=== PATIENT | female | born 1975 | race Caucasian/White ===

== ENCOUNTER 2023-08-23 15:54 | Outpatient (RCR) | payer OTHER, SELFPAY | END 2023-08-23 23:59 | disposition home or self-care (01) | LOC: RST 15:54 | PROVIDERS: ATTENDING PHYSICIAN Otolaryngology; FAMILY PHYSICIAN Family Medicine | DX: R49.0 Dysphonia (principal); K21.9 Gastro-esophageal reflux disease without esophagitis; R05.3 Chronic cough | CPT/HCPCS: 92507 ==

== ENCOUNTER → 2023-12-13 13:24 | Outpatient (REF) | payer OTHER, SELFPAY | LOC: HWWDC 13:24 | PROVIDERS: ATTENDING PHYSICIAN Family Medicine | DX: Z12.31 Encounter for screening mammogram for malignant neoplasm of breast (principal) | CPT/HCPCS: 77063; 77067 ==

== ENCOUNTER 2023-12-21 12:23 | Emergency (ER) | payer OTHER, SELFPAY ==
[2023-12-21 12:29] VITALS: BP 103/75
--- NOTE | 2023-12-21 13:34 | ED.GENMED ---
History of Present Illness
<Cary Fraser PA-C - Last Filed: 12/22/23 17:52>
General
Chief Complaint: Fall
Source: patient
Exam Limitations: none
Time Seen by Provider: 12/21/23 13:12
Nursing documentation reviewed up to this point in time: agreed with
Travel History
Have you had any contact with someone who has COVID-19?: No
Do you have any symptoms of coronavirus? Fever > 100 degrees, chills, cough, shortness of breath, sore throat, loss of taste or smell, muscle aches, or headache?: No
History of Present Illness
History of Present Illness:
Patient is a 48-year-old female with no significant past medical history presenting for evaluation of head injury following what appears to be a vasovagal syncope event earlier this morning. Patient states that she got up around 2 AM to use the
bathroom while she was sitting on the toilet having a bowel movement she fainted falling forward striking the right side of her face and head on the tile floor. Her son heard her and came into a bathroom to assist her. She temporarily regained
consciousness and then fainted briefly again. When she regained consciousness the second time�patient was able to stand up and get back to her bed. Since waking this morning patient denies any repeat syncopal events.
She does have a mild headache and pain on the left side of her face. She also endorses some mild pain in her left shoulder. She denies any severe neck pain, visual changes, nausea/vomiting. She denies any preceding chest pain, shortness of breath
dizziness, lightheadedness, new weakness, numbness, severe back preceding loss of consciousness. Patient denies any recent fever or chills. Patient does not take a blood thinner.
Patient states she has had a few episodes of syncope over the past 4 months for which she has seen her primary care provider.
Past History
<Cary Fraser PA-C - Last Filed: 12/22/23 17:52>
Past History
ED Past Medical History: Psychiatric and Other (Fibromyalgia)
ED Past Surgical History: Negative Cardiac
Social History
Tobacco: Non-smoker
Alcohol: Occasional
Drug: None
Personal:
Living: with family
Family History
Family History: Hypertension
Review of Systems
<Cary Fraser PA-C - Last Filed: 12/22/23 17:52>
Review of Systems
Allergies reviewed?: Yes
All Other Systems: ROS reviewed and negative except as documented in HPI and ROS
Phy Exam
<Cary Fraser PA-C - Last Filed: 12/22/23 17:52>
Physical Exam
Physical Exam:
Vitals: Patient's vital signs are stable. Afebrile
General: Patient is well appearing, no acute distress
Skin: Warm and dry, no rashes or lesions
Head: Normocephalic, small hematoma noted to left lateral brow.
Eyes: Sclera nonicteric. EOMs intact bilaterally. No nystagmus. Pupils equal round reactive light bilaterally.
Throat: Protecting airway
Neck: Normal ROM, no cervical spine tenderness, no meningismus. Trachea midline
Cardiac: Regular rate and rhythm, no murmurs.
Pulm: Normal respiratory effort, no wheezes, rales, rhonchi heard on exam.
Abdomen: No abdominal tenderness.
Extremities: Mild tenderness to left shoulder with no obvious edema or bony deformity. No tenderness of left clavicle. Full ROM in left shoulder intact with minimal discomfort. No evidence of cyanosis or edema. Good distal pulses in bilateral upper
and lower extremities. Normal sensation.
Neuro: AAOx3. CN II-XII intact. No focal neurologic deficits. Strength 5-5 in upper and lower extremities. Sensation fully intact. Normal finger-nose
Psychiatric: Normal affect.
Course
<Cary Fraser PA-C - Last Filed: 12/22/23 17:52>
Orders/Labs/Results
Orders:
Orders
12/21/23 12:32
Electrocardiogram (*1) Urgent
Reason for Study: Other
Other Reason for Exam: fall
CT Head W/o Iv Contrast Urgent
Comment:
Reason For Exam: fall
12/21/23 12:33
EKG- Treatment ONCE
12/21/23 13:45
Acetaminophen [Tylenol] 650 mg PO NOW STA
Shoulder, Left 2 View CR [CR Shoulder - Left Min 2 View*] Urgent
Comment:
Reason For Exam: fall, shoulder pain
12/21/23 13:54
Complete Blood Count/With Diff Urgent
Comprehensive Metabolic Panel Urgent
12/21/23 14:40
Orthostatic VS- Treatment ONCE
Abnormal Lab Results
12/21/23
13:54
Glucose 106 H mg/dl
(70-99)
12/21/23 13:54
12/21/23 13:54
Vital Signs
Initial and Last Documented VS:
Initial Vital Signs
Temp Pulse Resp BP Pulse Ox
98.0 F 81 19 103/75 98
12/21/23 12:29 12/21/23 12:29 12/21/23 12:29 12/21/23 12:29 12/21/23 12:29
Last Documented Vital Signs
Temp Pulse Resp BP Pulse Ox
98.0 F 81 19 103/75 98
12/21/23 12:29 12/21/23 12:29 12/21/23 12:29 12/21/23 12:29 12/21/23 12:29
<David Simmons MD - Last Filed: 12/21/23 16:28>
Orders/Labs/Results
Orders:
Orders
12/21/23 12:32
Electrocardiogram (*1) Urgent
Reason for Study: Other
Other Reason for Exam: fall
CT Head W/o Iv Contrast Urgent
Comment:
Reason For Exam: fall
12/21/23 12:33
EKG- Treatment ONCE
12/21/23 13:45
Acetaminophen [Tylenol] 650 mg PO NOW STA
Shoulder, Left 2 View CR [CR Shoulder - Left Min 2 View*] Urgent
Comment:
Reason For Exam: fall, shoulder pain
12/21/23 13:54
Complete Blood Count/With Diff Urgent
Comprehensive Metabolic Panel Urgent
12/21/23 14:40
Orthostatic VS- Treatment ONCE
Abnormal Lab Results
12/21/23
13:54
Glucose 106 H mg/dl
(70-99)
12/21/23 13:54
12/21/23 13:54
Vital Signs
Initial and Last Documented VS:
Initial Vital Signs
Temp Pulse Resp BP Pulse Ox
98.0 F 81 19 103/75 98
12/21/23 12:29 12/21/23 12:29 12/21/23 12:29 12/21/23 12:29 12/21/23 12:29
Last Documented Vital Signs
Temp Pulse Resp BP Pulse Ox
98.0 F 81 19 103/75 98
12/21/23 12:29 12/21/23 12:29 12/21/23 12:29 12/21/23 12:29 12/21/23 12:29
<Cary Fraser PA-C - Last Filed: 12/22/23 17:52>
MDM/Problems Addressed
Differential Diagnosis Includes:
Not limited to: Contusion, concussion, doubt fracture; vasovagal syncope, cardiac dysrhythmia, dehydration, electrolyte derangements, viral illness, orthostatic hypotension, highly doubt pulmonary emboli
MDM/Problems Addressed:
48-year-old female presenting for evaluation of head injury sustained this morning after what seems to be a vasovagal syncopal event. Patient had right frontal head strike on hard tile without any loss of conscious. She presents with a contusion
to her left lateral eyebrow and mild headache. She has some mild pain in her left shoulder from as well. Patient denies any preceding chest pain, shortness of breath, dizziness, lightheadedness prior to syncopal event. She has had a few syncopal
events over the past few months which she has mentioned to her primary care provider. Vital signs are stable. Exam as above. No focal neurologic deficits. Contusion noted to left lateral brow. Suspect likely facial contusion. Will check head
CT, shoulder x-ray. Given recurrent syncopal episodes�will obtain basic labs, check EKG, orthostatics. Will closely monitor and reassess. Tylenol and ice.
Shoulder x-ray shows no acute fracture or dislocation. Head CT shows some swelling in the left periorbital region consistent with contusion but no evidence of fracture or intracranial hemorrhage. Labs normal. EKG shows normal sinus rhythm without
any signs of ischemia. Orthostatic vital signs normal without any evidence of orthostatic hypotension.
Stable for discharge with ice, NSAIDs for discomfort. Will provide cardiology referral given recurrent syncopal episodes with negative workup here. Return precautions discussed. Patient comfortable with plan.
Chronic conditions affecting care:
N/A
Acute Exacerbation and/or Progression of Chronic Illness:
N/A
<Cary Fraser PA-C - Last Filed: 12/22/23 17:52>
*Radiology
Radiology exam reviewed: preliminary read by ED provider and radiology read reviewed
*Pulse Oximetry
Patient hypoxic: no
*EKG
Interpreted by ED Provider?: Yes
EKG Intrepretation Date: 12/21/23
Interpretation: normal
Comparison EKG: no changes
Heart Rate: 69
Rate: normal
Rhythm: sinus
Interval: normal interval
Ischemia: no ischemia
*Telephone Information Supervisor Interpretation
Rate: Telephone Information Supervisor- N/A
*Critical Care Note
Total Time (30-74mins, 75-104mins- exclusive of procedures): Not Applicable
ED Attending Note
<Cary Fraser PA-C - Last Filed: 12/22/23 17:52>
-
Portions of this chart may have been created with voice recognition software.� Occasional wrong word or��sound alike� substitutions may have occurred due to the inherent limitations of voice recognition software.
<David Simmons MD - Last Filed: 12/21/23 16:28>
ED Attending Note
Patient seen and examined by attending physician: Yes
ED Attending Note:
I have seen and evaluated the patient with a [id number] encounter. I have spoken to the advance practicer provider and involved in the medical history, the physical exam, medical decision making.
Evaluation and management service: agree unless noted differently below.
Results interpretation: agree unless noted differently below.
Focused HPI: 48-year-old female with no significant chronic medical issues presents for evaluation after a syncopal event also had a head trauma. Patient reports that she woke up in the middle of the night to go to the bathroom. She says that she
was having a bowel movement and while she was on the toilet she felt dizzy and passed out. She says that she hit her head on the tile floor. No other serious injuries but she had some swelling above her left eye and so she came to the emergency
room to be assessed. She has not had any chest pain, shortness of breath, palpitations. She denies any known cardiac history. Regarding the fall she complains of some mild headache but denies any neck pain, back pain, chest pain, abdominal pain;
she does have some mild left shoulder pain. She is not on blood thinners.
Physical exam: Awake and alert not in distress. Vital signs are normal. She has a mild contusion in the left supraorbital region. Pupils are equal round and reactive to light bilaterally and extraocular movements are intact without pain. She has
no tenderness in the cervical spine and full range of motion in the neck with no discomfort. She has some very mild tenderness along the anterior lateral left shoulder and pain with active range of motion but she does have full active range of
motion. Rest of extremities are atraumatic and she is moving them all through comfortable range of motion. She has good pulses in all extremities. She has no signs of trauma to the back. No gross neurologic deficits. She has no cardiac rubs
gallops or murmurs and her lungs are clear to auscultation bilaterally.
Medical Decision Makin-year-old female presents for evaluation after a syncopal episode while having a bowel movement last night, struck the left side of her head. Vitals and exam as documented. EKG showed no concerning findings. CBC and CMP
unremarkable. Her CT head was negative for any acute intracranial pathology. X-ray of the shoulder showed possible tendinitis otherwise unremarkable. Suspect likely vasovagal syncope in the setting of having a bowel movement. She has had
syncopal events in the past; refer to cardiology for follow-up�prior episodes have happened on the toilet as well. Advised rest and ice for left shoulder contusion. She feels very comfortable with this plan. Spoke about return precautions all
questions answered.
Discharge Plan
Departure
Patient Disposition: Home (Routine Discharge)
Date of Disposition: 12/21/23
Time of Disposition: 15:23
Patient with high blood pressure during this ER visit?: No
Condition: Good
Covid-19: Not Applicable
Discharge Problem:
Minor head injury, Contusion of face, Syncope, vasovagal
Instructions: Concussion, Adult (DC), Contusion (DC), Vasovagal Response (DC)
Prescriptions:
No Action
levothyroxine 100 MCG tablet
100 mcg PO DAILY
tramadol 50 MG tablet
100 mg PO BID
pregabalin [Lyrica] 100 MG capsule
100 mg PO BID
cholecalciferol (vitamin D3) 2,000 UNIT tablet
2,000 unit PO BID
Flexeril:
1 tab PO BID
Klonopin
1 tab PO PRN PRN (Reason: prn)
Meloxicam
1 tab PO DAILY
amoxicillin-pot clavulanate 875-125 mg tablet
1 tab PO BID Qty: 10 0RF
prednisone 10 mg Tablet
See Rx Instructions .ROUTE .COMPLEX Qty: 45 0RF
Rx Instructions:
Take By Mouth:
50 mg daily x3 days, 40 mg daily x3 days,
30 mg daily x3 days, 20 mg daily x3 days,
10 mg daily x3 days
Referrals:
Jeremy Naranjo MD [Active] -
Annika Barcenas DO [Family Provider] -
Aly Vázquez MD [Active] -
Activity Restrictions/Additional Instructions:
RETURN TO THE EMERGENCY DEPARTMENT WITH ANY SEVERE HEADACHE, INTRACTABLE NAUSEA/VOMITING, VISION CHANGES, PERSISTENT DIZZINESS, CHEST PAIN, SHORTNESS OF BREATH, WORSENING IN CURRENT SYMPTOMS, OR ANY OTHER CONCERNS
-As discussed�you should take Motrin/Tylenol as needed for discomfort. You should apply ice to contusion on face. You should take it easy over the next few days. Stay well-hydrated.
-You should follow-up with your primary care provider and cardiology for further evaluation/management of syncope episodes. Do not hesitate to return to the emergency department with any new or changing symptoms.
Interventions
Interventions:
*Risk Screen - Suicide Last Done: 12/21/23 12:29
*General Assessment Last Done: 12/21/23 12:29
*Neglect/Abuse Screening Last Done: 12/21/23 12:29
ED- Fall Risk Assessment Last Done: 12/21/23 13:51
*ED COVID-19 Vaccine History Last Done: 12/21/23 13:51
*Nursing Disposition Last Done: 12/21/23 15:39
ED-Musculoskeletal Assessment Last Done: 12/21/23 13:51
ED- Neurological Assessment Last Done: 12/21/23 13:51
ED-Skin Assessment Last Done: 12/21/23 13:51
Discharge Date and Time
Discharge Date/Time: 12/21/23 15:39
Print Language: ROMANIAN
[2023-12-21 13:51] VITALS: BMI 29.4
[2023-12-21] MEDS: TYLENOL 650 MG PO (13:54)
[2023-12-21 13:59] LABS: % Basophils 0.3 % (0-2); % Eosinophils 2.1 % (0-6); % Immature Granulocytes 0.3 % (0-0.5); % Lymphocytes 26.4 % (20.5-51.1); % Monocytes 7.9 % (1.7-9.3); Absolute Eosinophils 0.1 10^3/uL (0-0.7); Absolute Lymphocytes 1.7 10^3/uL (1.2-3.4); Absolute Monocytes 0.5 10^3/uL (0.1-0.6); Hematocrit 37.1 % (37.0-47.0); Hemoglobin 12.5 g/dL (12.0-16.0); Mean Corp Hgb Conc. 33.7 g/dL (33.0-37.0); Mean Corpuscular Hgb 28.9 pg (27.0-31.0); Mean Corpuscular Volume 85.7 fL (81.0-99.0); Mean Platelet Volume 10.2 fL (7.4-10.4); Nucleated Red Blood Cells % 0 %; Platelet Count 150 10^3/uL (130-400); Red Blood Cell Count 4.33 10^6/uL (4.20-5.40); Red Cell Dist. Width 11.9 % (11.5-14.5); White Blood Cell Count 6.3 10^3/uL (4.8-10.8)
[2023-12-21 14:20] LABS: ALT (SGPT) 24 U/L (0-35); AST (SGOT) 27 U/L (14-36); Alkaline Phosphatase 61 U/L (38-126); Blood Urea Nitrogen 16 mg/dl (7-17); Calcium 9.5 mg/dl (8.4-10.2); Carbon Dioxide 30 mmol/L (22-30); Chloride 105 mmol/L (98-107); Estimated Creatinine Clearance 79 ml/min; Glucose 106 mg/dl (70-99); Potassium 4.1 mmol/L (3.5-5.1); Sodium 141 mmol/L (135-145); Total Bilirubin 0.8 mg/dl (0.2-1.3); Total Protein 7.1 g/dl (6.3-8.2); eGFR > 60.00
[2023-12-21 15:00] VITALS: BP 101/70; BP 84/60; BP 94/60; PULSE 71; PULSE 73; PULSE 88
== END 2023-12-21 15:39 | disposition home or self-care (01) ==
LOC: EMR 12:23
PROVIDERS: Physician Assistant; EMERGENCY PHYSICIAN Emergency Medicine; FAMILY PHYSICIAN Family Medicine
DX: R55 Syncope and collapse (principal); S00.83XA Contusion of other part of head, initial encounter; S40.012A Contusion of left shoulder, initial encounter; S00.12XA Contusion of left eyelid and periocular area, initial encounter; W18.11XA Fall from or off toilet without subsequent striking against object, initial encounter; Y93.E8 Activity, other personal hygiene; Y92.002 Bathroom of unspecified non-institutional (private) residence as the place of occurrence of the external cause; M79.7 Fibromyalgia; Z91.018 Allergy to other foods
CPT/HCPCS: 99284; 70450; 73030; 80053; 85025; 93005

== ENCOUNTER → 2024-04-24 13:35 | Outpatient (REF) | payer OTHER, SELFPAY | LOC: MRI 3T 13:35 | PROVIDERS: ATTENDING PHYSICIAN Family Medicine | DX: R41.3 Other amnesia (principal) | CPT/HCPCS: 70551 ==

== ENCOUNTER 2025-01-28 06:22 | Day surgery (SDC) | payer OTHER, SELFPAY | END 2025-01-28 10:33 | disposition home or self-care (01) | LOC: GI 06:22 | PROVIDERS: ATTENDING PHYSICIAN Internal Medicine Gastroenterology | DX: R13.14 Dysphagia, pharyngoesophageal phase (principal); R12 Heartburn; R68.81 Early satiety; R63.4 Abnormal weight loss; K31.7 Polyp of stomach and duodenum | CPT/HCPCS: 43239; 88305 ==